=== PATIENT | male | born 1945 | race Caucasian/White ===

== ENCOUNTER 2020-09-27 09:04 | Day surgery (SDC) | payer OTHER ==
[~2020-09-27] VITALS: Ht 170.2 cm; Wt 78.5 kg
[2020-09-27 09:38] VITALS: BP 154/74; PULSE 64; TEMP 97.5
[2020-09-27] MEDS ORDERED: MINIPRESS2 MG PO (09:42)
[2020-09-27] MEDS ORDERED: VITAMIN B12 781 TAB PO (09:43)
[2020-09-27] MEDS ORDERED: TOPROL XL 25MG25 MG PO (09:43)
[2020-09-27] MEDS ORDERED: VITAMIN B COMPL1 SGL PO (09:43)
[2020-09-27] MEDS ORDERED: WELLBUTRIN SR150 M1 PO (09:44)
[2020-09-27] MEDS ORDERED: COZAAR100 MG PO (09:45)
[2020-09-27] MEDS ORDERED: VITAMIN D31000 I1 PO (09:45)
[2020-09-27] MEDS ORDERED: HCTZ 25MG TAB25 MG PO (09:45)
[2020-09-27] MEDS ORDERED: GLUCOPHAGE850 MG/TAB PO (09:46)
[2020-09-27] MEDS ORDERED: PYRIDIUM 100MG100 MG PO (11:08)
--- NOTE | 2020-09-27 11:50 | NUR ---
The patient arrived back to [facility] from the recovery room at this time. The patient appears alert and oriented and denies any pain or nausea at this time. Post operative vital signs were started at this time. The patient agrees to try some grape juice at this time. The patient has a martinez catheter in place which is secured to his left leg and draining light pink, clear urine. was brought back to be at his bedside. Call light is within reach. Will continue to monitor the patient.
[2020-09-27 11:55] VITALS: BP 145/64; PULSE 65; TEMP 97.5
[2020-09-27 12:05] VITALS: BP 150/67; PULSE 57
--- NOTE | 2020-09-27 12:05 | NUR ---
The patient appears to have tolerated the juice well and denies wanting anything further to eat or drink at this time. Vital signs appear stable. Call light is within reach. Will continue to monitor the patient.
[2020-09-27 12:20] VITALS: BP 147/66; PULSE 61
--- NOTE | 2020-09-27 12:20 | NUR ---
The patient has finished his juice and appeared to tolerate it well. The patient voices a desire to be discharged home.
--- NOTE | 2020-09-27 12:30 | NUR ---
The patient leg bag teaching was reviewed with the patient and his at this time. They both verbalized understanding and have no questions for the nurse at this time. The patient's IV to his right hand was removed and a pressure dressing was applied to the site. Discharge instructions were reviewed withe patient and his at this time. They both verbalized understanding and have no questions for the nurse at this time.
--- NOTE | 2020-09-27 12:45 | NUR ---
The patient was escorted out via wheelchair to a private vehicle by MARIAN Rose. The patient's belongings and discharge paperwork were sent with him. The patient's is present to drive him home.
== END 2020-09-27 12:45 | disposition home or self-care (01) ==
LOC: SDCO 09:04
DX: N99.112 Postprocedural membranous urethral stricture, male (principal); I10 Essential (primary) hypertension; J44.9 Chronic obstructive pulmonary disease, unspecified; I25.10 Atherosclerotic heart disease of native coronary artery without angina pectoris; I25.2 Old myocardial infarction; E78.5 Hyperlipidemia, unspecified; E11.9 Type 2 diabetes mellitus without complications; F43.10 Post-traumatic stress disorder, unspecified; Z95.1 Presence of aortocoronary bypass graft; Z79.82 Long term (current) use of aspirin; Z79.84 Long term (current) use of oral hypoglycemic drugs; Z79.899 Other long term (current) drug therapy; Z85.828 Personal history of other malignant neoplasm of skin; Z87.891 Personal history of nicotine dependence; Z85.46 Personal history of malignant neoplasm of prostate
CPT/HCPCS: A4215; C1769; C1894; J0690; J1100; J2405; J3010; J3301; J7030

== ENCOUNTER 2020-10-10 09:54 | Day surgery (SDC) | payer OTHER ==
[~2020-10-10] VITALS: Ht 167.6 cm; Wt 78.3 kg
[~2020-10-10 09:54] MED LIST: COZAAR100 MG PO; GLUCOPHAGE850 MG/TAB PO; HCTZ 25MG TAB25 MG PO; MINIPRESS2 MG PO; PYRIDIUM 100MG100 MG PO; TOPROL XL 25MG25 MG PO; VITAMIN B COMPL1 SGL PO; VITAMIN B12 781 TAB PO; VITAMIN D31000 I1 PO; WELLBUTRIN SR150 M1 PO
[2020-10-10 11:04] VITALS: BP 167/79; PULSE 82; TEMP 97.8
[2020-10-10] MEDS ORDERED: PYRIDIUM 100MG100 MG PO (13:01)
[2020-10-10 13:40] VITALS: BP 138/73; PULSE 78; TEMP 97.4
--- NOTE | 2020-10-10 13:40 | NUR ---
Patient arrives to [facility] [place] [facility] via cart, accompanied by H[employer] SUPERVISOR Shanice. He is alert and oriented, sitting up in bed. PIV to TKO. Monitoring is applied -VSS and WNL on room air. He denies pain or nausea. Gold bag to dependent drainage. Urine is yellow/orange in color (patient takes pyridium at home). He is offered and receives a muffin and a coffee. His is brought to the bedside per patient request. Will continue to monitor.
[2020-10-10 13:55] VITALS: BP 123/75; PULSE 81
--- NOTE | 2020-10-10 13:55 | NUR ---
Patient is tolerating PO well. He denies pain or nausea.
[2020-10-10 14:03] VITALS: TEMP 97.7
[2020-10-10 14:10] VITALS: BP 142/71; PULSE 86
--- NOTE | 2020-10-10 14:10 | NUR ---
VSS and WNL on room air. Denies pain or nausea. 200mL of urine is drained from Gold bag.
--- NOTE | 2020-10-10 14:45 | NUR ---
Patient has met discharge criteria. Discharge instructions are discussed. Gold care is taught and patient verbalizes understanding. Gold drainage bag is changed over to a leg bag, per patient request. PIV is removed with catheter intact and hemostasis achieved. The patient changes to his clothing independently. He is escorted to the exit via wheelchair by staff. He is discharged to home with ride in private vehicle, driven by his , at 1445.
== END 2020-10-10 14:45 | disposition home or self-care (01) ==
LOC: SDCO 09:54
DX: N32.0 Bladder-neck obstruction (principal); N99.112 Postprocedural membranous urethral stricture, male; C61 Malignant neoplasm of prostate; E11.9 Type 2 diabetes mellitus without complications; E78.5 Hyperlipidemia, unspecified; I25.10 Atherosclerotic heart disease of native coronary artery without angina pectoris; I25.2 Old myocardial infarction; I10 Essential (primary) hypertension; J44.9 Chronic obstructive pulmonary disease, unspecified; G57.00 Lesion of sciatic nerve, unspecified lower limb; G47.33 Obstructive sleep apnea (adult) (pediatric); F43.10 Post-traumatic stress disorder, unspecified; Z20.822 Contact with and (suspected) exposure to COVID-19; Z85.828 Personal history of other malignant neoplasm of skin; Z79.82 Long term (current) use of aspirin; Z79.84 Long term (current) use of oral hypoglycemic drugs; Z79.899 Other long term (current) drug therapy; Z87.891 Personal history of nicotine dependence; Z95.1 Presence of aortocoronary bypass graft; Z99.89 Dependence on other enabling machines and devices
CPT/HCPCS: C1769; J0690; J1100; J2405; J2704; J7120

== ENCOUNTER 2021-01-12 15:45 | Day surgery (SDC) | payer OTHER ==
[~2021-01-12] VITALS: Ht 167.6 cm; Wt 76.5 kg
[2021-01-12 16:11] VITALS: BP 159/74; PULSE 91; TEMP 97.6
--- NOTE | 2021-01-12 16:30 | NUR ---
Patient arrived back into [facility]. Report received from MARIAN Tenorio. Patient doing well. Requesting diet pepsi and muffin. Tolerated both food and drink well with no complaint of nausea or vomiting. States pain is minimally and does not need anything.
--- NOTE | 2021-01-12 16:50 | NUR ---
Patient up to restroom. Up independently with steady gait.
[2021-01-12 17:10] VITALS: BP 100/65; PULSE 77; TEMP 97.7
--- NOTE | 2021-01-12 17:10 | NUR ---
Patient arrived back into [facility] from PACU. Report received from MARIAN Young. Patient reports doing well. No pain. No nausea/vomiting. Patient requesting water and muffins. Patient tolerated food and drink with no nausea.
[2021-01-12 17:25] VITALS: BP 122/65; PULSE 78
--- NOTE | 2021-01-12 17:25 | NUR ---
Patient vitally stable. Tolerated food and drink. Urine flowing freely from catheter, no blood or clots noted.
[2021-01-12 17:40] VITALS: BP 118/61; PULSE 88
--- NOTE | 2021-01-12 17:45 | NUR ---
Went through discharge instructions with patient and patient's . Martinez catheter supplies given to patient. Patient and demonstrated ability to care for martinez catheter. Questions answered.
--- NOTE | 2021-01-12 17:50 | NUR ---
Patient and escorted to emergency department entrance via wheelchair. Patient left in the care of his .
== END 2021-01-12 17:50 | disposition home or self-care (01) ==
LOC: SDCO 15:45
DX: N32.0 Bladder-neck obstruction (principal); R33.9 Retention of urine, unspecified; C61 Malignant neoplasm of prostate; R33.8 Other retention of urine; N99.112 Postprocedural membranous urethral stricture, male; I10 Essential (primary) hypertension; I25.10 Atherosclerotic heart disease of native coronary artery without angina pectoris; E11.9 Type 2 diabetes mellitus without complications; J44.9 Chronic obstructive pulmonary disease, unspecified; G47.33 Obstructive sleep apnea (adult) (pediatric); I25.2 Old myocardial infarction; E78.5 Hyperlipidemia, unspecified; G57.00 Lesion of sciatic nerve, unspecified lower limb; F43.10 Post-traumatic stress disorder, unspecified; Z99.89 Dependence on other enabling machines and devices; Z85.828 Personal history of other malignant neoplasm of skin; Z95.1 Presence of aortocoronary bypass graft; Z79.899 Other long term (current) drug therapy; Z79.82 Long term (current) use of aspirin; Z90.79 Acquired absence of other genital organ(s); Z79.84 Long term (current) use of oral hypoglycemic drugs; Z87.891 Personal history of nicotine dependence
CPT/HCPCS: C1769; C1894; J2405; J2704; J3010; J7030

== ENCOUNTER 2021-05-16 14:43 | Day surgery (SDC) | payer OTHER ==
[~2021-05-16] VITALS: Ht 167.6 cm; Wt 74.4 kg
[2021-05-16] MEDS ORDERED: ASPIRIN E.C. 8181 MG PO (15:09)
[2021-05-16] MEDS ORDERED: XTANDI40 M1 PO (15:16)
[2021-05-16 15:33] VITALS: BP 163/75; PULSE 72; TEMP 97.1
[2021-05-16] MEDS ORDERED: NORCO 325 MG-51 TAB PO (17:27)
[2021-05-16 17:50] VITALS: BP 149/64; PULSE 67; TEMP 96.8
[2021-05-16 18:05] VITALS: BP 154/76; PULSE 63
[2021-05-16 18:20] VITALS: BP 150/57; PULSE 61
[2021-05-16 18:53] VITALS: BP 150/78; PULSE 62; TEMP 98.1
--- NOTE | 2021-05-16 19:05 | NUR ---
1750 PT RETURNED TO [facility] VIA CART. ALERT AND ORIENTED. POSTOP VITALS STARTED. MONITORS ATTACHED AND ALARMS SET. DRESSING HAS SCANT AMOUNT OF SANGUINEOUS DRAINAGE. INSTRUCTED PT AND TO CHANGE DRESSING FREQUENTLY AND MONITOR DRAINAGE AND WHEN TO CALL PHYSICIAN. TEA AND MUFFIN PROVIDED. PT DENIES ANY PAIN OR NAUSEA. 1805 PT TOLERATING FOOD AND DRINK WELL. NO SIGNS OF CONTINUING DRAINAGE. 182 REVIEWED DISCHARGE INSTRUCTIONS AND EDUCATION MATERIAL WITH PT AND . BOTH VERBALIZED UNDERSTANDING. ANSWERED ALL QUESTION. DEMONSTRATED CATHETER CARE. 184 APPLIED LEG BAG PER PT REQUEST. EMPTIED 300ML OF CLEAR, CLARENCE URINE FROM BAG. REMOVED IV WITHOUT COMPLICATION. ALLOWED PT TO DRESS. 190 TRANSFERED PT TO PERSONAL VEHICLE VIA WHEEL CHAIR TO BE DRIVEN HOME BY .
== END 2021-05-16 19:05 | disposition home or self-care (01) ==
LOC: SDCO 14:43
DX: N35.919 Unspecified urethral stricture, male, unspecified site (principal); C61 Malignant neoplasm of prostate; R33.8 Other retention of urine; I25.10 Atherosclerotic heart disease of native coronary artery without angina pectoris; I25.2 Old myocardial infarction; I10 Essential (primary) hypertension; E11.9 Type 2 diabetes mellitus without complications; G47.33 Obstructive sleep apnea (adult) (pediatric); J44.9 Chronic obstructive pulmonary disease, unspecified; Z95.5 Presence of coronary angioplasty implant and graft; Z85.828 Personal history of other malignant neoplasm of skin; Z79.899 Other long term (current) drug therapy; Z92.3 Personal history of irradiation; Z79.84 Long term (current) use of oral hypoglycemic drugs; Z87.891 Personal history of nicotine dependence; Z79.82 Long term (current) use of aspirin
CPT/HCPCS: C1769; C1894; J0690; J1100; J2405; J2704; J3010; J7120

== ENCOUNTER 2021-11-19 02:56 | Emergency (ER) | payer OTHER ==
[~2021-11-19] VITALS: Ht 167.6 cm; Wt 70.5 kg
[~2021-11-19 02:56] MED LIST changes: +ASPIRIN E.C. 8181 MG PO; +NORCO 325 MG-51 TAB PO; +XTANDI40 M1 PO
[2021-11-19 03:47] VITALS: TEMP 97.7
[2021-11-19 07:00] LABS: BASO % 0.3 % (0.0-2.0); EOS # 0.1 K/mm3 (0.0-0.7); GRAN # 4.5 K/mm3 (1.4-6.5); GRAN % 70.2 % (42.2-75.2); HEMATOCRIT 37.8 % (42.0-52.0); HEMOGLOBIN 13.2 g/dl (13.5-18.0); LYMPH # 1.2 K/mm3 (1.2-3.4); MEAN CELL VOLUME 89 fl (80.0-100.0); MEAN CORPUSCULAR HEMOGLOBIN 31 pg (27-31); MEAN CORPUSCULAR HGB CONC 35 g/dl (33.0-37.0); MEAN PLATELET VOLUME 10.4 fl (7.4-10.4); MONO # 0.6 K/mm3 (0.1-0.6); MONO % 9.2 % (1.7-9.3); PLATELET COUNT 151 K/mm3 (130-400); RED BLOOD COUNT 4.27 M/mm3 (4.20-5.60); REDCELL DISTRIBUTION WIDTH-CV 12.3 % (11.5-14.5)
[2021-11-19 07:26] LABS: CALCIUM 9.6 mg/dL (8.4-10.2); CREATININE, serum 0.83 mg/dL (0.72-1.25); POTASSIUM 4.2 mmol/L (3.5-4.5)
[2021-11-19 07:38] LABS: SQUAMOUS EPITHELIAL None Seen /hpf (0-10); URINE BACTERIA None Seen /hpf (NONE SEEN); URINE RBC None Seen /hpf (0-2); URINE WBC >50 /hpf (0-2)
[2021-11-19 07:39] LABS: COLLECTION METHOD CLEAN CATCH; URINE APPEARANCE Turbid (CLEAR/HAZY); URINE COLOR Yellow (YELLOW)
[2021-11-19 07:40] LABS: PH 5.5 (5.0-8.5); URINE GLUCOSE Negative (NEGATIVE); URINE PROTEIN(semi-quant) 2+ (NEGATIVE)
[2021-11-19 07:41] LABS: URINE BLOOD 3+ (NEGATIVE); URINE NITRATE Positive (NEGATIVE); URINE UROBILINOGEN 0.2 E.U/dL (0.2-1.0)
[2021-11-19 07:42] LABS: URINE KETONE Negative (NEGATIVE)
[2021-11-19] MEDS ORDERED: LEVAQUIN 750MG750 M1 PO (08:05)
[2021-11-19 08:10] VITALS: BP 118/68; PULSE 79
== END 2021-11-19 08:10 | disposition home or self-care (01) ==
LOC: COL.ER 02:56
PROVIDERS: Emergency Medicine
DX: N39.0 Urinary tract infection, site not specified (principal); R73.9 Hyperglycemia, unspecified; Z87.891 Personal history of nicotine dependence; Z28.310 Unvaccinated for COVID-19
CPT/HCPCS: A4314